=== PATIENT | female | born 1955 | race Caucasian/White ===

== ENCOUNTER 2019-10-01 18:08 | Inpatient (IN) | payer MEDICARE, SELFPAY ==
[2019-10-01] MEDS ORDERED: Adacel (T-DAP) 0.5 ML SYRINGE ONE (18:17)
--- NOTE | 2019-10-01 18:34 | CT ---
CT BRAIN WITHOUT CONTRAST: HISTORY: Level 2 trauma FINDINGS: No evidence of acute infarct, hemorrhage, midline shift or abnormal extra-axial fluid collections is seen. The ventricular size is appropriate and the basilar cisterns are patent. The bony calvarium is intact. The visualized paranasal sinuses and mastoid air cells are well aerated. IMPRESSION: No CT evidence of acute intracranial process. Report is called over the telephone to Dr. Rivero in the emergency room at 6:30 PM.
[2019-10-01 18:36] LABS: #Basophils 0.1 thou/uL (0.0-0.2); #Lymphocytes 1.4 thou/uL (1.20-3.40); #Monocytes 1.2 thou/uL (0.11-0.59); #Neutrophils 14.6 thou/uL (1.40-6.50); %Basophils 0.6 % (0.0-1.0); %Eosinophils 0.2 % (0.0-10.0); %Lymphocytes 7.8 % (21.0-51.0); %Monocytes 6.7 % (0.0-10.0); %Neutrophils 84.7 % (42.0-75.0); Hemoglobin 10.6 g/dL (12.0-16.0); Mean Corpuscular HGB CONC 33.8 g/dL (32.0-36.0); Mean Corpuscular Hemoglobin 32.5 pg (27.0-31.0); Mean Corpuscular Volume 96.3 fL (78.0-98.0); Mean Platelet Volume 7.8 fL (7.4-10.4); Platelet Count 284 thou/uL (130-400); RBC Distribution Width 12.3 % (11.5-14.5); Red Blood Cell (RBC) Count 3.25 mill/uL (4.20-5.40); White Blood Cell (WBC) Count 17.3 thou/uL (4.8-10.8)
--- NOTE | 2019-10-01 18:47 | RAD ---
XR Chest 1 View Portable HISTORY: Injury chest pain COMPARISON: None FINDINGS: The heart size is normal. There are changes of median sternotomy and valvular replacement s urgery. The aorta is tortuous. The lungs are well expanded without focal areas of consolidation, pneumothorax or pleural effusions. IMPRESSION: No radiographic evidence of acute cardiopulmonary process.
[2019-10-01 18:51] LABS: INR-International Normal Ratio 2.5; PTT 37.3 SEC (22.9-36.1); Prothrombin Time 26.4 SEC (12.0-14.7)
[2019-10-01] MEDS ORDERED: Ondansetron PF 4 MG/2 ML Vial ONE ×2 (18:52→21:10)
[2019-10-01] MEDS ORDERED: Ketamine 50 MG/ML (10ML VIAL) ONE ×2 (18:53→20:49)
[2019-10-01 18:57] LABS: ALT (SGPT) 34 U/L (8-55); AST (SGOT) 47 U/L (5-34); Alkaline Phosphatase 132 U/L (40-110); Anion Gap 15 mmol/L (10-20); BUN (Urea Nitrogen) 42 mg/dL (9.8-20.1); Bilirubin, Total 0.3 mg/dL (0.2-1.2); Calc. Creatinine Clearance 0 mL/min (70-130); Calcium 8.8 mg/dL (7.8-10.44); Carbon Dioxide 21 mmol/L (23-31); Chloride 105 mmol/L (98-107); Estimated GFR-MDRD 29; Globulin 3.2 g/dL (2.4-3.5); Glucose 73 mg/dL (80-115); Potassium 4.4 mmol/L (3.5-5.1); Protein, Total 7.2 g/dL (6.0-8.3); Sodium 137 mmol/L (136-145)
--- NOTE | 2019-10-01 19:08 | CT ---
CT CERVICAL SPINE WITH CORONAL AND SAGITTAL REFORMATIONS AND NO IV CONTRAST: HISTORY: Level 2 trauma, neck pain FINDINGS: Multilevel degenerative changes are present. There is loss of cervical lordosis with mild reversal. No fracture, subluxation or facet malalignment is identified. No prevertebral soft tissue swelling is apparent. There is scarring in the lung apices. IMPRESSION: No CT evidence for fracture or traumatic subluxation. Discussed over the telephone with ER physician Dr. Rivero at 1851 hours
[2019-10-01] MEDS ORDERED: Morphine 4 MG/ML VIAL ONE ×2 (19:16→19:58)
--- NOTE | 2019-10-01 19:21 | CT ---
CT FACIAL BONES WITHOUT CONTRAST: 10/01/19 HISTORY: Injury, level II trauma. FINDINGS/IMPRESSION: The bones of the facial skeleton are intact. No temporomandibular dislocation is identified. There is mucosal disease in the paranasal sinuses. No air fluid levels are noted. Discussed over the telephone with the ER physician, Dr. Rivero at 6:51 p.m. POS: OFF
[2019-10-01] MEDS ORDERED: Phytonadione 10 MG/ML AMP ONE (19:40)
--- NOTE | 2019-10-01 19:46 | RAD ---
LEFT ANKLE TWO VIEWS LEFT LEG TWO VIEWS: 10/01/19 HISTORY: Injury, left ankle pain. FINDINGS/IMPRESSION: There is a dislocation at the talonavicular joint and a displaced fracture involving the distal fibul a. POS: OFF
--- NOTE | 2019-10-01 19:59 | RAD ---
LEFT ANKLE TWO VIEWS: 10/01/19 HISTORY: Fracture dislocation. Post reduction. FINDINGS/IMPRESSION: Comparison is made with the earlier exam of 5:48 p.m. There is continued dislocation at the talonavicular joint with lateral dislocation of the talus in re lation to the distal tibia. There are displaced fractures involving the lateral and posterior malleo li. A cast has been placed. POS: OFF
[2019-10-01] MEDS ORDERED: CEFAZOLIN 2 GM in Premix Bag 1 BAG IVPB SCH (20:15)
[2019-10-01] MEDS ORDERED: cefTRIAXone\\ROCEPHIN 2 GM in Sodium Chloride 0.9% 100 ML IVPB SCH (20:15)
[2019-10-01] MEDS ORDERED: Phenylephrine HCL 10 MG/ML VIAL ONE (20:49)
[2019-10-01] MEDS ORDERED: Glycopyrrolate 0.2 MG/ML 5 ML SYRINGE ONE (21:10)
[2019-10-01] MEDS ORDERED: PROPOFOL 200 MG/20 ML VIAL ONE (21:10)
[2019-10-01] MEDS ORDERED: Rocuronium Bromide 10 MG/ML (10ML VIAL) ONE (21:10)
[2019-10-01] MEDS ORDERED: PHENYLEPHRINE-NS 100 MCG/ML 10 ML SYRINGE ONE (21:10)
--- NOTE | 2019-10-01 21:26 | HP ---
This is Chad Burger PA-C dictating a report for Rodrigo Macario MD. REQUESTING PHYSICIAN: Jovana Rivero DO ATTENDING SURGEON: Rodrigo Macario MD CONSULTATIONS: Orthopedics, Dr. Middleton. HISTORY OF PRESENT ILLNESS: The patient is a 64-year-old woman, who was working in her yard when she tripped over a root and fell. She denied loss of consciousness but had significant pain, discomfort and deformity to her left ankle. The patient incidentally has already undergone surgery for her right ankle and was wearing a walking boot at that time. The patient is on Coumadin. She was brought to the emergency department, where she underwent evaluation and examination and was noted to have left ankle fracture dislocation that was unable to be reduced in the emergency department. The patient would have vitamin K and 1 unit of FFP given to her and the plan is taken to the operating room tonight for open reduction and internal fixation. The patient was given multiple doses of fentanyl and ketamine, was only able to give us partial histories due to medications given to her at this time. ALLERGIES: NONE. CURRENT MEDICATIONS: Warfarin. PAST MEDICAL HISTORY: Heart valve replacement, hypertension. PAST SURGICAL HISTORY: Heart valve replacement, right ankle surgery. SOCIAL HISTORY: The patient smokes approximately 3 to 4 cigarettes per day. Denies drug or alcohol. She lives at home with her daughter. REVIEW OF SYSTEMS: A 10-point review of systems is negative as otherwise stated. PHYSICAL EXAMINATION: VITAL SIGNS: Blood pressure 182/76, heart rate 98, respirations 21, oxygen saturations 100% on 2 L via nasal cannula, temperature is 97.7. GENERAL: The patient is resting comfortably in bed. She will answer some questions, but definitely appears to be under the influence of narcotics at this time. She will follow commands. Her Chana Coma Scale is 14, -1 for some confusion. HEENT: Head is normocephalic, atraumatic. Eyes, extraocular motion intact. PERRLA bilaterally. Ears are atraumatic without discharge. Nose is atraumatic without discharge. Oropharynx is clear. NECK: Nontender. Trachea is midline. No JVD. CHEST: Clear to auscultation with good inspiratory and expiratory effort. HEART: Regular rate and rhythm. ABDOMEN: Soft, flat, nontender with active bowel sounds. EXTREMITIES: The patient has small contusions to bilateral upper extremities and small superficial lacerations to bilateral knees, right lower extremity is in a walking boot. The left lower extremity is currently in a posterior splint. She is neurovascularly intact in all 4 extremities. BACK: By report is atraumatic and nontender. LABORATORY FINDINGS: White blood cell count 17.3, hemoglobin 10.6, hematocrit 31.3, platelets 284. Sodium 137, potassium 4.4, chloride 105, CO2 of 21, BUN 42, creatinine 1.74, glucose 73. LFTs unremarkable with the exception of alkaline phosphatase of 132, AST of 47. Troponin is less than 0.010. PT 26, INR 2.5, PTT 37. RADIOGRAPHIC REPORT: CT of the brain without contrast shows no acute intracranial abnormality. CT of the facial bones without contrast shows no acute posttraumatic changes. CT of the C-spine without contrast shows no CT evidence for fracture or traumatic subluxation. AP chest x-ray shows no radiographic evidence of acute cardiopulmonary process. Views of the left tibia and fibula show dislocation at the talonavicular joint and displaced fracture involving the distal fibula. Views of the left ankle again shows dislocation of the talonavicular joint and displaced fracture involving the distal fibula. Post reduction films show no significant changes. ASSESSMENT: 1. Status post ground level fall, on warfarin. 2. Left ankle fracture dislocation. 3. Multiple contusions. 4. Superficial lacerations. 5. Acute pain secondary to above. 6. History of heart valve replacement and hypertension. PLAN: Plan will be to admit the patient to the surgical floor. She will go from the emergency room to the operating room. She has received 5 mg of vitamin K and 1 unit of fresh frozen plasma. We will repeat her INR postoperatively and again in the morning. Do pain control, pulmonary toilet, gastritis, mechanical VTE prophylaxis. The patient was evaluated in the emergency department by Dr. Middleton. The evaluation, examination, laboratory, and radiographic findings were discussed with Dr. Macario prior to this dictation. Job ID: [id number]
[2019-10-01] MEDS ORDERED: Fentanyl 100 MCG/2 ML VIAL ONE (22:59)
[2019-10-01] MEDS ORDERED: Promethazine HCl 25 MG/ML VIAL IM PRN (23:07)
[2019-10-01] MEDS ORDERED: Promethazine HCl 25 MG/ML VIAL SLOW IVP PRN (23:07)
[2019-10-01] MEDS ORDERED: Ondansetron HCl/PF 4 MG/2 ML Vial IVP PRN (23:07)
--- NOTE | 2019-10-01 23:29 | RAD ---
LEFT ANKLE TWO VIEWS: 10/01/19 HISTORY: Left ankle ORIF. FINDINGS/IMPRESSION: Interval reduction of the fracture dislocation has occurred since earlier exam of 6:55 p.m. There are two screws through the medial malleolus and plate and screws through the distal fibula. Anatomic ali gnment has been restored. POS: OFF
[2019-10-02] MEDS ORDERED: traMADol HCl 50 MG TAB PO PRN (01:22)
[2019-10-02] MEDS ORDERED: Ondansetron PF 4 MG/2 ML Vial IVP PRN (01:22)
[2019-10-02] MEDS ORDERED: hydrALAZINE 20 MG/ML VIAL SLOW IVP PRN (01:22)
[2019-10-02] MEDS ORDERED: Ondansetron ODT 4 MG TAB PO PRN (01:22)
[2019-10-02] MEDS ORDERED: Sodium Chloride 0.9% 1,000 ML IV SCH (01:22)
[2019-10-02] MEDS ORDERED: Morphine 2 MG/ML SYRINGE SLOW IVP PRN (01:22)
[2019-10-02] MEDS ORDERED: Dextrose 50% Abboject 50 ML SYRINGE SLOW IVP PRN (01:22)
[2019-10-02] MEDS ORDERED: Dextrose 5% in Water 1,000 ML IV PRN (01:22)
[2019-10-02] MEDS ORDERED: Cyclobenzaprine 10 MG TAB PO PRN (01:22)
[2019-10-02] MEDS ORDERED: Famotidine 20 MG TAB PO SCH ×2 (01:30→21:00)
[2019-10-02] MEDS: cefTRIAXone\\ROCEPHIN 1 GM in Sodium Chloride 0.9% 100 ML IVPB SCH ×2 (02:36→23:14)
[2019-10-02] MEDS: CEFAZOLIN 2 GM in Premix Bag 1 BAG IVPB SCH ×3 (02:37→17:33)
[2019-10-02 05:00] VITALS: BMI 24.7
[2019-10-02 05:49] LABS: #Basophils 0.1 thou/uL (0.0-0.2); #Lymphocytes 1.8 thou/uL (1.20-3.40); #Monocytes 1.1 thou/uL (0.11-0.59); #Neutrophils 7.7 thou/uL (1.40-6.50); %Basophils 1.1 % (0.0-1.0); %Eosinophils 0.4 % (0.0-10.0); %Lymphocytes 17.1 % (21.0-51.0); %Neutrophils 71.4 % (42.0-75.0); Hemoglobin 8.2 g/dL (12.0-16.0); Mean Corpuscular HGB CONC 32.1 g/dL (32.0-36.0); Mean Corpuscular Hemoglobin 31.2 pg (27.0-31.0); Mean Corpuscular Volume 97.4 fL (78.0-98.0); Mean Platelet Volume 7.7 fL (7.4-10.4); Platelet Count 245 thou/uL (130-400); RBC Distribution Width 12.4 % (11.5-14.5); Red Blood Cell (RBC) Count 2.63 mill/uL (4.20-5.40); White Blood Cell (WBC) Count 10.8 thou/uL (4.8-10.8)
--- NOTE | 2019-10-02 05:57 | CON ---
DATE OF CONSULTATION: 10/01/2019 CHIEF COMPLAINT: Left ankle pain. HISTORY OF PRESENT ILLNESS: Ms. Frausto is a 64-year-old female, who was outside her house today when she tripped on a root. She twisted her ankle and fell. She sustained an open laceration over the ankle and a dislocated ankle with underlying fracture. She was found to have this on x-ray upon arrival to the emergency department. The patient is on Coumadin. There was significant bleeding at the time of the accident. This has ceased. She has had an attempted reduction and a splint placed. She is currently resting comfortably. She has had morphine. She denies other injury including to her upper extremities. Of note, several weeks ago, she had an injury to the right ankle and sustained a nondisplaced fracture. She was treated in a boot for this. ALLERGIES: NO KNOWN DRUG ALLERGIES. FAMILY MEDICAL HISTORY: Noncontributory. REVIEW OF SYSTEMS: Positive for left ankle pain. Otherwise, negative 10-point review of systems. SOCIAL HISTORY: The patient smokes cigarettes daily. She denies alcohol or tobacco use. She lives with her daughter. PAST MEDICAL HISTORY: The patient has a history of mitral valve replacement, on Coumadin. She denies other active medical problems. PAST SURGICAL HISTORY: Previous mitral valve replacement surgery. PHYSICAL EXAMINATION: VITAL SIGNS: Stable. The patient is afebrile. She is normotensive, 98% on room air. GENERAL: She is alert, lying supine, no apparent distress. RESPIRATORY: Breathing comfortably. Pulses palpable peripherally and regular. ABDOMEN: Soft, nontender, and nondistended. MUSCULOSKELETAL: The patient's right lower extremity is in a boot. She has intact capillary refill of both feet. She has intact sensation to light touch. She is tender to palpation over the distal fibula on the right ankle. Left ankle is in a splint. She has deformity of the ankle. She has laceration over the medial aspect in a transverse fashion, which is extensive. IMAGING: X-rays demonstrate a distal fibular fracture with dislocation of the ankle laterally. There is soft tissue disruption. Other details are difficult to assess given that she has significant deformity. IMPRESSION: Left ankle fracture dislocation, open. PLAN: At this point, the patient will need to go to the operating room. She will go for irrigation and debridement of the ankle and open reduction and internal fixation. We will plan for this tonight. She will be given FFP and vitamin K to reverse her Coumadin. She will have antibiotics on-call to the operating room as well. She will stay in the hospital overnight for intravenous antibiotics, DVT prophylaxis, and pain control. She is aware of risks and benefits. She is aware of recovery process. Job ID: [id number]
[2019-10-02] MEDS ORDERED: CEFAZOLIN 2 GM in Premix Bag 1 BAG IVPB SCH (06:00)
[2019-10-02 06:09] LABS: INR-International Normal Ratio 1.3; PTT 31.8 SEC (22.9-36.1); Prothrombin Time 16.5 SEC (12.0-14.7)
[2019-10-02] MEDS: traMADol HCl 50 MG TAB PO SCH ×4 (06:19→23:16)
[2019-10-02] MEDS: Acetaminophen 325 MG TAB PO SCH ×2 (06:19→11:41)
[2019-10-02 06:25] LABS: Anion Gap 17 mmol/L (10-20); BUN (Urea Nitrogen) 36 mg/dL (9.8-20.1); Calc. Creatinine Clearance 30 mL/min (70-130); Carbon Dioxide 17 mmol/L (23-31); Chloride 106 mmol/L (98-107); Estimated GFR-MDRD 27; Glucose 247 mg/dL (80-115); Magnesium 1.8 mg/dL (1.6-2.6); Potassium 5.1 mmol/L (3.5-5.1); Sodium 135 mmol/L (136-145)
[2019-10-02 06:29] LABS: Phosphorus 3.4 mg/dL (2.3-4.7)
[2019-10-02] MEDS ORDERED: Furosemide 40 MG TAB PO SCH (09:00)
[2019-10-02] MEDS: hydrALAZINE 10 MG TAB PO SCH ×3 (09:00→20:23)
[2019-10-02] MEDS: Gabapentin 300 MG CAP PO SCH ×2 (09:00→20:23)
[2019-10-02] MEDS ORDERED: Enoxaparin Sodium 30 MG/0.3 ML SYRINGE SC SCH ×2 (09:00→18:00)
[2019-10-02] MEDS: Metoprolol Tartrate 25 MG TAB PO SCH ×2 (09:01→20:24)
[2019-10-02] MEDS: Senokot S 8.6-50 MG TAB PO SCH ×2 (09:03→20:23)
[2019-10-02] MEDS: Polyethylene Glycol 3350 17 GM Packet PO SCH (09:03)
--- NOTE | 2019-10-02 09:38 | OP ---
DATE OF PROCEDURE: 10/01/2019 OPERATIONS: 1. Open reduction and internal fixation of left bimalleolar ankle fracture. 2. Irrigation and debridement of left open bimalleolar ankle fracture. PREOPERATIVE DIAGNOSIS: Open left bimalleolar ankle fracture. POSTOPERATIVE DIAGNOSIS: Open left bimalleolar ankle fracture. COMPLICATIONS: None. ESTIMATED BLOOD LOSS: 100 cc. IMPLANTS: Synthes one third tubular plate, 7-hole with two 4.0 partially-threaded screws. INDICATIONS: Ms. Frausto is a 64-year-old female who fell at home. She tripped and landed out in her garden. She had an open left ankle fracture. She has been indicated for open reduction and internal fixation as well as irrigation and debridement of her fracture to restore anatomic alignment and hopefully prevent wound complications or infection. Risks have been reviewed in detail. She has elected to proceed with the operation. DESCRIPTION OF OPERATION: Ms. Frausto was identified in the preoperative holding area. Her correct extremity was marked. She was carried to the operating room. She was positioned supine. General anesthesia was induced. A multidisciplinary time-out was performed. The left lower extremity was prepped and draped in sterile fashion. We began the procedure by irrigating the patient's wound. We performed a debridement of the open fracture. We excised the skin edges as well as subcutaneous tissues. We encountered some contamination including hair and some leaf-like material. This was removed carefully. We removed any contaminated-appearing tissue or substance. We thoroughly irrigated the joint with 5 L of lavage as well as the bony ends. Once we had a thorough debridement, we proceeded to reduce the medial malleolus. We pulled traction and reduced the dislocated ankle as well. We restored the anatomic alignment of the medial malleolus. This was held with a K-wire and a reduction clamp was placed. Next, we placed two 4.0 mm partially-threaded screws across the medial malleolar fracture. This reconstituted the stability of the medial side. We then made an incision along the lateral aspect of the ankle over the fibula. We dissected down through the subcutaneous tissues and obtained hemostasis. We then cleared the bony edges. We encountered a highly comminuted fracture of the fibula. We pieced this back together with reduction clamp and K-wires. Once we had an anatomic reduction, we checked intraoperative x-ray. We were happy with our reduction on the x-ray as well. We then placed a 7-hole one third tubular plate. Multiple screws were placed proximally and distally. This repaired the lateral malleolus. Again, we took x-ray images including a stress view, which was negative. We then closed the wounds in layers. A sterile dressing was applied as well as a splint. The patient was taken to the recovery room at this point in good condition without complication. Job ID: [id number]
--- NOTE | 2019-10-02 10:07 | PRG ---
DATE OF SERVICE: 10/02/2019 SUBJECTIVE: The patient is doing well. She does have pain in her left ankle. She has been resting comfortably. No events overnight. She was finished with surgery approximately 11 o'clock last night. No chest pain or shortness of breath. OBJECTIVE: VITAL SIGNS: Temperature is 98.2, pulse is 117, respiratory rate is 16, oxygen saturation 90%, and blood pressure is 161/64. GENERAL: She is alert and oriented, no apparent distress. RESPIRATORY: Breathing comfortably. ABDOMEN: Soft, nontender, and nondistended. MUSCULOSKELETAL: The patient's left lower extremity has a splint, which is clean and dry. It is well padded. She is elevating the foot. She has intact capillary refill and is able to wiggle the toes. IMPRESSION: Status post open left ankle fracture, bimalleolar. PLAN: At this point, the patient will need to mobilize with physical therapy. She is nonweightbearing on the left leg. She can weightbear as tolerated on her right leg. She needs to continue elevation. I would like to keep her in the hospital today for 48 hours of antibiotics given that she had a contaminated open wound. Job ID: [id number]
[2019-10-02] MEDS ORDERED: Acetaminophen 325 MG TAB PO SCH (12:00)
[2019-10-02] MEDS ORDERED: Ibuprofen 600 MG TAB PO PRN (12:12)
[2019-10-02] MEDS ORDERED: PROVENTIL INHALER 6.7 G (200 INHALATIONS) INH PRN (13:00)
--- NOTE | 2019-10-02 15:16 | RAD ---
LEFT ANKLE TWO VIEWS: 10/02/19 HISTORY: Postop. There has been open reduction internal fixation of the ankle fracture. Fibular fracture is stabilized with plate and screws and two screws stabilize the medial malleolar fracture. IMPRESSION: Postoperative changes of the ankle. POS: TPC
[2019-10-02] MEDS ORDERED: Warfarin Sodium 5 MG TAB PO SCH ×3 (17:00)
[2019-10-02] MEDS: HumaLOG 300 UNITS/3 ML VIAL SC SCH ×2 (17:36→20:47)
[2019-10-02] MEDS: Acetaminophen 500 MG TAB PO SCH ×2 (17:47→23:16)
[2019-10-02] MEDS ORDERED: Sodium Chloride 0.9% 500 ML IV SCH (18:45)
[2019-10-02] MEDS: Heparin 5,000 UNITS/ML VIAL SC SCH (20:24)
[2019-10-02] MEDS ORDERED: FLU VACC TS2019-20(65YR UP)/PF 180 MCG/0.5 ML SYRINGE IM ONE (21:00)
[2019-10-02] MEDS ORDERED: HumuLIN 70/30 (300 UNITS/3 ML VIAL) SC SCH (21:00)
[2019-10-02] MEDS ORDERED: Prevnar 13-Val Conj/PF 0.5 ML SYRINGE IM ONE (21:00)
--- NOTE | 2019-10-03 01:10 | PRG ---
DATE OF SERVICE: 10/03/2019 SUBJECTIVE: The patient is currently on the surgical floor. She is hospital day #2, postop day #1 from a ground level fall which sustained a left ankle fracture dislocation. She has undergone open reduction and internal fixation of same. She tolerated the procedure well. She reportedly has her pain control, tolerating a diet, begin working with therapy today. She is also awaiting placement. The patient's updated home medication list was restarted also. The patient was on Coumadin preoperatively. She was given vitamin K and fresh frozen plasma for her surgery, and she is currently on heparin and resume her Coumadin. PHYSICAL EXAMINATION: VITAL SIGNS: Stable. The patient is afebrile. GENERAL: The patient is resting comfortably in bed. She appears in no distress. She is sleeping. I did not awaken her for an exam. The nurses report no issues tonight. ASSESSMENT: 1. Status post ground level fall, on Coumadin. 2. Status post open reduction and internal fixation of left ankle fracture dislocation. 3. Multiple contusions. 4. Superficial lacerations, stable. 5. History of heart valve replacement and hypertension. PLAN: Plan will be to continue supportive care. Encourage physical and occupational therapy. Repeat labs in the morning to include INR. We will continue working with Case Management for a placement. Job ID: [id number]
[2019-10-03] MEDS: CEFAZOLIN 2 GM in Premix Bag 1 BAG IVPB SCH ×2 (02:35→09:30)
[2019-10-03 05:26] LABS: INR-International Normal Ratio 1.1; PTT 40.5 SEC (22.9-36.1); Prothrombin Time 14.6 SEC (12.0-14.7)
[2019-10-03 06:15] LABS: Anion Gap 15 mmol/L (10-20); BUN (Urea Nitrogen) 31 mg/dL (9.8-20.1); Calc. Creatinine Clearance 31 mL/min (70-130); Calcium 8.8 mg/dL (7.8-10.44); Carbon Dioxide 21 mmol/L (23-31); Chloride 104 mmol/L (98-107); Estimated GFR-MDRD 28; Glucose 196 mg/dL (80-115); Magnesium 1.9 mg/dL (1.6-2.6); Phosphorus 2.7 mg/dL (2.3-4.7); Potassium 4.8 mmol/L (3.5-5.1); Sodium 135 mmol/L (136-145)
[2019-10-03] MEDS: Acetaminophen 500 MG TAB PO SCH ×2 (06:19→12:13)
[2019-10-03] MEDS: HumaLOG 300 UNITS/3 ML VIAL SC SCH ×2 (06:20→12:20)
[2019-10-03] MEDS ORDERED: Gabapentin 100 MG CAP PO PRN (07:50)
[2019-10-03] MEDS ORDERED: Enoxaparin Sodium 30 MG/0.3 ML SYRINGE SC SCH (09:00)
[2019-10-03] MEDS: Polyethylene Glycol 3350 17 GM Packet PO SCH (09:26)
[2019-10-03] MEDS: Metoprolol Tartrate 25 MG TAB PO SCH (09:27)
[2019-10-03] MEDS: hydrALAZINE 10 MG TAB PO SCH (09:28)
[2019-10-03] MEDS: Senokot S 8.6-50 MG TAB PO SCH (09:28)
[2019-10-03] MEDS: Heparin 5,000 UNITS/ML VIAL SC SCH (09:29)
[2019-10-03] MEDS ORDERED: traMADol HCl 50 MG TAB PO SCH (10:00)
[2019-10-03 11:15] VITALS: BP 153/72; TEMP 98.1
--- NOTE | 2019-10-06 13:45 | DIS ---
DATE OF ADMISSION: 10/02/2019 DATE OF DISCHARGE: 10/03/2019 ADMISSION DIAGNOSES: 1. Status post ground level fall . 2. Left ankle fracture. 3. History of right ankle fracture, knee replacement, hypertension, diabetes. DISCHARGE DIAGNOSES: 1. Status post ground level fall. 2. Left ankle fracture status post ORIF of left ankle fracture. 3. History of recent right ankle fracture; heart valve replacement, on Coumadin; hypertension, diabetes. Chronic kidney disease, stable. CONSULTING PHYSICIAN: Dr. Middleton. PROCEDURES: ORIF of the left ankle fracture. HOSPITAL COURSE: Ms. Frausto is a 64-year-old female who is status post ground level fall. She sustained left ankle fracture. She underwent ORIF of right ankle fracture due to contaminated wound of right ankle fracture. Dr. Middleton wants the patient to be in antibiotic for 40 hours. The patient also has a history of diabetes and chronic kidney disease, in which she has been stable and blood glucose is controlled. The patient has been working with Physical Therapy and Occupational Therapy. Yesterday, the patient accidentally had weightbearing from the left feet in which she had the left ankle x-ray ordered. The results were normal. The patient has been accepted to rehabilitation facility today. PHYSICAL EXAMINATION: GENERAL: Currently, the patient is lying down in bed comfortable with no acute respiratory distress. GCS 15. VITAL SIGNS: Temperature 98.1, heart rate 96, respiratory rate 18, O2 saturation 96% on room air, blood pressure 153/72. LUNGS: Clear bilaterally. HEART: Regular rate and rhythm. ABDOMEN: Soft, nondistended. EXTREMITIES: Left ankle postop dressing clean, dry, intact. NEUROLOGICAL: No focal neurology deficits. DISCHARGE DISPOSITION: Rehabilitation facility. DISCHARGE CONDITION: Fair. DISCHARGE INSTRUCTION: The patient is to take medication as directed. The patient is to use heparin for DVT prophylaxis. The patient is to continue working with Physical Therapy and Occupational Therapy. The patient is to have blood glucose control using insulin. The patient will need to have tramadol dose to reduce due to excessive drowsiness. DISCHARGE MEDICATIONS: 1. Tylenol. 2. Albuterol. 3. Cefazolin. 4. . 5. Flexeril. 6. Tramadol. 7. Metoprolol. 8. Insulin. Job ID: [id number] [facility]
== END 2019-10-03 13:20 | DRG 494 ==
LOC: ERS 18:08 → SDC/OP 20:48 → SURG A 10-02 01:16
PROVIDERS: ADMIT Surgery; ATTEND Surgery
PROC: 0QSH04Z Reposition Left Tibia with Internal Fixation Device, Open Approach (ICD-10-PCS; principal; 2019-10-02)
PROC: 0QSK04Z Reposition Left Fibula with Internal Fixation Device, Open Approach (ICD-10-PCS; 2019-10-02)
DX: S82.852B Displaced trimalleolar fracture of left lower leg, initial encounter for open fracture type I or II (principal); I10 Essential (primary) hypertension; F17.210 Nicotine dependence, cigarettes, uncomplicated; W01.0XXA Fall on same level from slipping, tripping and stumbling without subsequent striking against object, initial encounter; S05.10XA Contusion of eyeball and orbital tissues, unspecified eye, initial encounter; Z79.01 Long term (current) use of anticoagulants; Z95.2 Presence of prosthetic heart valve; Y93.89 Activity, other specified; Y92.096 Garden or yard of other non-institutional residence as the place of occurrence of the external cause
CPT/HCPCS: 27818; 36415; 36416; 36430; 70450; 70486; 71045; 72125; 76000; 80048; 80053; 83735; 84100; 84484; 85025; 85610; 85730; 86850; 86900; 86901; 90471; 90715; 93005; 94640; 96360; 96365; 96375; 96376; C1713; G0390; J0360; J0690; J0696; J1644; J1650; J1815; J2270; J2370; J2405; J2704; J3010; J3430; J3490; J7620; P9059

== ENCOUNTER 2019-11-15 12:57 | Inpatient (IN) | payer MEDICARE ==
--- NOTE | 2019-11-15 13:38 | RAD ---
Left lower leg 2 views HISTORY: Left leg pain. FINDINGS: 2 long lag screws transfix a nondisplaced fracture at the base of the medial malleolus. Long compression side plate and multiple screws transfix the distal fibular fracture. The third most proximal screw is backed out of the compression plate by 0.6 cm, approaching the skin surface. No nikolay-hardware lucency is evident. No acute fracture or dislocation. Prominent calcification over the arterial structures. IMPRESSION : Malposition of one of the cortical fixation screws associated with the distal tibial or lateral compr ession plate. Atherosclerosis.
--- NOTE | 2019-11-15 13:39 | RAD ---
Left ankle 3 views HISTORY: Ankle pain and injury. Recent surgery. FINDINGS: Ankle mortise and talar dome are intact. 2 long lag screws transfix a nondisplaced oblique fracture at the base of the medial malleolus. Long compression side plate transfixes the distal fibula. Alignment is anatomic. The third most proxi mal screw is backed out of the compression plate by 6 mm. No nikolay-hardware lucency. IMPRESSION : Internal fixation left ankle. Malposition of one of the distal fibular fixation screws.
[2019-11-15] MEDS ORDERED: Ondansetron PF 4 MG/2 ML Vial IV PRN (14:41)
[2019-11-15] MEDS ORDERED: traMADol HCl 50 MG TAB PO PRN ×2 (14:41)
[2019-11-15] MEDS ORDERED: Morphine 2 MG/ML SYRINGE SLOW IVP PRN (14:41)
[2019-11-15] MEDS ORDERED: Communication Order-Pharmacy FS SCH (14:45)
[2019-11-15 15:14] LABS: #Basophils 0.2 thou/uL (0.0-0.2); #Eosinphils 1.3 thou/uL (0.0-0.7); #Lymphocytes 2.1 thou/uL (1.20-3.40); #Monocytes 0.7 thou/uL (0.11-0.59); %Basophils 1.9 % (0.0-1.0); %Eosinophils 12.7 % (0.0-10.0); %Lymphocytes 20.1 % (21.0-51.0); %Neutrophils 58.4 % (42.0-75.0); Hemoglobin 9.7 g/dL (12.0-16.0); Mean Corpuscular HGB CONC 32.9 g/dL (32.0-36.0); Mean Corpuscular Hemoglobin 31.4 pg (27.0-31.0); Mean Corpuscular Volume 95.4 fL (78.0-98.0); Mean Platelet Volume 7.3 fL (7.4-10.4); Platelet Count 332 thou/uL (130-400); RBC Distribution Width 12.9 % (11.5-14.5); Red Blood Cell (RBC) Count 3.08 mill/uL (4.20-5.40); White Blood Cell (WBC) Count 10.2 thou/uL (4.8-10.8)
[2019-11-15 15:19] LABS: INR-International Normal Ratio 1.7; PTT 41.5 SEC (22.9-36.1); Prothrombin Time 19.6 SEC (12.0-14.7)
[2019-11-15 15:33] LABS: ALT (SGPT) 17 U/L (8-55); AST (SGOT) 21 U/L (5-34); Albumin 3.6 g/dL (3.4-4.8); Alkaline Phosphatase 122 U/L (40-110); Anion Gap 15 mmol/L (10-20); BUN (Urea Nitrogen) 44 mg/dL (9.8-20.1); Bilirubin, Total 0.4 mg/dL (0.2-1.2); Calc. Creatinine Clearance 0 mL/min (70-130); Carbon Dioxide 20 mmol/L (23-31); Chloride 107 mmol/L (98-107); Estimated GFR-MDRD 25; Globulin 3.6 g/dL (2.4-3.5); Glucose 103 mg/dL (80-115); Potassium 4.6 mmol/L (3.5-5.1); Protein, Total 7.2 g/dL (6.0-8.3); Sodium 137 mmol/L (136-145)
[2019-11-15 17:37] VITALS: BMI 23.3
[2019-11-15] MEDS ORDERED: Prevnar 13-Val Conj/PF 0.5 ML SYRINGE IM ONE (18:30)
--- NOTE | 2019-11-15 18:47 | HP ---
BRIEF HISTORY OF PRESENT ILLNESS: Ms. Frausto is a 64-year-old lady, well known to the [facility]. On October 01, 2019, she sustained a ground level fall when she tripped over a root while working in her yard. She sustained a fracture dislocation of the left ankle. The patient does take Coumadin for mitral valve replacement and as such, surgery was delayed one day so that she could receive vitamin K and 1 unit of fresh frozen plasma. She was taken to the operating room on the evening of October 01 and underwent an open reduction and internal fixation procedure. The patient was subsequently discharged to rehabilitation and subsequently discharged to home. Compliance has been an issue with the patient bearing some weight on this ankle. In the postoperative period, she did develop a mild partial-thickness skin loss especially noticeable at the lateral aspect of the ankle. This has been addressed with damp to dry dressing changes and some wound care evaluations through home health. Today, upon home health evaluation, she was found to have a visible screw head in the lateral wound and as such, I was contacted by phone and the patient now being admitted for hardware removal and irrigation and debridement of this lateral wound. The patient is otherwise well and denies any recent fevers, chills, or coughs. Of note, the patient does take Coumadin and we are awaiting an INR level. PAST MEDICAL HISTORY: Remarkable for history of hypertension as well as a heart valve replacement. PAST SURGICAL HISTORY: Heart valve replaced as well as right ankle surgery and now more recently left ankle open reduction and internal fixation on October 01, 2019. MEDICATIONS: Warfarin. ALLERGIES: NONE KNOWN. SOCIAL HISTORY: She smokes a few cigarettes each day and has done so for many years. She denies drug or alcohol abuse. She lives with her daughter at home. FAMILY HISTORY: Noncontributory. REVIEW OF SYSTEMS: Does not report any recent fevers, chills, or sweats. Denies chest pain, cough, or shortness of breath. Denies numbness or tingling in this left lower extremity. PHYSICAL EXAMINATION: GENERAL: The patient is examined in her emergency room. She does not appear to be in any acute distress. VITAL SIGNS: She is found to have a temperature of 98.4 degrees orally with a heart rate of 63, respiratory rate of 18, and blood pressure 176/77. HEENT: Atraumatic and normocephalic. HEART: Shows a regular rate and rhythm without murmur. CHEST: Clear to auscultation bilaterally with good breath sounds. Chest wall is nontender. ABDOMEN: Soft, flat with normal bowel sounds. EXTREMITIES: Remarkable for her left lower extremity with patchy areas of wound dehiscence along the incision line laterally with a screw head visible through one of these partial skin loss areas. There is some screw that is visible that is in the upper half of the plate. There is no surrounding erythema. There is no visible drainage. The medial side of the ankle also has an area of some fibrinous exudate, but no visible hardware or bone is present. There is also no erythema medially. LABORATORY DATA: CBC, complete metabolic panel, and INR pending. X-rays today in the emergency room. X-rayswere obtained that consist of a 3-view ankle and 2-view tib-fib that shows a screw that has backed out of the fibular plate with the fracture otherwise held in anatomic alignment. There is still not significant bridging callus laterally. ASSESSMENT: A 64-year-old lady, status post open reduction and internal fixation of left ankle, now with wound dehiscence and visible hardware. PLAN: At this time, the patient will be admitted to the [facility]opedic [facility] Service. We will await her INR values to determine appropriate dosing of vitamin K if indicated. We will schedule the patient for hardware removal with irrigation and debridement of this lateral ankle wound tomorrow morning as well as some debridement of the small fibrinous exudate medially. I have discussed with the patient risks and benefits of this procedure. Risks include, but are not limited to bleeding, infection, nerve injury, need for additional surgery, loss of fixation of her fracture, need for additional stabilization of her fracture, loss of limb or life. She appears to understand and does wish to proceed. We will try and make sure that her daughter has also been informed regarding our plans prior to surgery. Job ID: [id number]
[2019-11-15] MEDS ORDERED: Dextrose 50% Abboject 50 ML SYRINGE SLOW IVP PRN (19:38)
[2019-11-15] MEDS ORDERED: Dextrose 5% in Water 1,000 ML IV PRN (19:38)
[2019-11-15] MEDS ORDERED: Bisacodyl 10 MG SUPP PR PRN (19:40)
[2019-11-15] MEDS ORDERED: Bisacodyl 5 MG TAB PO PRN (19:40)
[2019-11-15] MEDS ORDERED: Acetaminophen 325 MG TAB PO PRN (19:40)
--- NOTE | 2019-11-15 19:52 | PDOC.HOSPP ---
- Subjective Encounter Date: 11/15/19 Encounter Time: 19:30 Subjective: Patient seen and examined. No new complaints. Denies fever, chills, N/V. Consulted for medical management. Scheduled for left ankle hardware removal and debridement tomorrow with Dr. Montalvo. - Objective Vital Signs & Weight: Vital Signs (12 hours) Temp Pulse Resp BP Pulse Ox 11/15/19 17:15 97.4 F L 65 16 128/74 96 Weight Weight 132 lb I&O: 11/14/19 11/15/19 11/16/19 06:59 06:59 06:59 Intake Total 300 Balance 300 Result Diagrams: 11/15/19 15:01 11/15/19 15:01 Radiology Reviewed by me: Yes (CXR reviewed) Hospitalist ROS - Review of Systems Constitutional: denies: fever, chills, sweats, weakness, malaise, other Respiratory: denies: cough, dry, shortness of breath, hemoptysis, SOB with excertion, pleuritic pain, sputum, wheezing, other Cardiovascular: denies: chest pain, palpitations, orthopnea, paroxysmal noc. dyspnea, edema, light headedness, other Gastrointestinal: denies: nausea, vomiting, abdominal pain, diarrhea, constipation, melena, hematochezia, other Genitourinary: denies: dysuria, frequency, incontinence, hematuria, retention, other - Exam General Appearance: NAD, awake alert Eye: anicteric sclera ENT: normocephalic atraumatic Neck: supple, no JVD Heart: RRR, no gallops, no rubs, normal peripheral pulses, II/IV Respiratory: CTAB, no wheezes, no rales, no ronchi, no tachypnea Gastrointestinal: soft, non-tender, non-distended, normal bowel sounds, no guarding, no rigidity Extremities: no cyanosis, no edema Extremities - other findings: Left ankle wrapped SUKHI and Gauze Neurological: no focal deficits Psychiatric: normal affect, A&O x 3 Hosp A/P (1) HTN (hypertension) Code(s): I10 - ESSENTIAL (PRIMARY) HYPERTENSION Status: Chronic Plan: Stable, controlled Patient did take her morning medications today Will restart Metoprolol and hydralazine Will hold Lasix (2) DMII (diabetes mellitus, type 2) Status: Chronic Plan: Patient takes 70/30, 20u BID BS stable, will hold and add sliding scale AC/HS accuchecks NPO after midnight (3) H/O mitral valve repair Code(s): Z98.890 - OTHER SPECIFIED POSTPROCEDURAL STATES Status: Chronic Plan: Patient taking coumadin Hold coumadin INR 1.7 (4) CKD (chronic kidney disease), stage IV Code(s): N18.4 - CHRONIC KIDNEY DISEASE, STAGE 4 (SEVERE) Status: Chronic Plan: stable, 10/09/2019 Creatinine/GFR 1.76/29 Will hold lasix Gentle IVF hydration after midnight (5) Asthma Code(s): J45.909 - UNSPECIFIED ASTHMA, UNCOMPLICATED Status: Chronic Plan: Well controlled, intermittent asthma Has albuterol inhaler prn home med - Plan Order baseline EKG and CXR BMP, CBC in am Consult PT/OT GI prophlaxis SCDs DVT prophylaxis Full Code DPOA Crystal (daughter) at [phone]
--- NOTE | 2019-11-15 20:27 | RAD ---
PORTABLE CHEST: 11/15/19 COMPARISON: 10/01/19 study. HISTORY: Preop. Heart size appears slightly enlarged with postop sternotomy changes. Some minimal blunting to the rig ht costophrenic angle is noted. Some atelectasis in the right base. IMPRESSION: 1. Mild cardiomegaly. 2. Chronic lung changes. Some blunting to the right costophrenic angle which could indicate a sm all effusion. POS: TIMOTHY
[2019-11-15] MEDS: hydrALAZINE 10 MG TAB PO SCH (21:06)
[2019-11-15] MEDS: Metoprolol Tartrate 25 MG TAB PO SCH (21:07)
[2019-11-15] MEDS: Famotidine 20 MG TAB PO SCH (21:07)
[2019-11-15] MEDS: HumaLOG 300 UNITS/3 ML VIAL SC PRN (21:08)
[2019-11-15] MEDS: Sodium Chloride 0.9% 1,000 ML IV SCH (23:58)
[2019-11-16 05:04] LABS: #Basophils 0.2 thou/uL (0.0-0.2); #Eosinphils 1.8 thou/uL (0.0-0.7); #Lymphocytes 2.2 thou/uL (1.20-3.40); #Monocytes 0.9 thou/uL (0.11-0.59); #Neutrophils 6.5 thou/uL (1.40-6.50); %Basophils 2.1 % (0.0-1.0); %Eosinophils 15.6 % (0.0-10.0); %Lymphocytes 18.9 % (21.0-51.0); %Monocytes 7.7 % (0.0-10.0); %Neutrophils 55.6 % (42.0-75.0); Hemoglobin 8.6 g/dL (12.0-16.0); Mean Corpuscular HGB CONC 32.6 g/dL (32.0-36.0); Mean Corpuscular Hemoglobin 31.1 pg (27.0-31.0); Mean Corpuscular Volume 95.2 fL (78.0-98.0); Mean Platelet Volume 7.3 fL (7.4-10.4); Platelet Count 270 thou/uL (130-400); Red Blood Cell (RBC) Count 2.76 mill/uL (4.20-5.40); White Blood Cell (WBC) Count 11.7 thou/uL (4.8-10.8)
[2019-11-16 05:21] LABS: INR-International Normal Ratio 1.7; Prothrombin Time 19.5 SEC (12.0-14.7)
[2019-11-16 05:22] LABS: Anion Gap 11 mmol/L (10-20); BUN (Urea Nitrogen) 43 mg/dL (9.8-20.1); CRP (Inflammatory) 1.36 mg/dL (= or < 0.5); Calc. Creatinine Clearance 30 mL/min (70-130); Calcium 8.3 mg/dL (7.8-10.44); Carbon Dioxide 24 mmol/L (23-31); Chloride 107 mmol/L (98-107); Estimated GFR-MDRD 29; Glucose 104 mg/dL (80-115); Potassium 4.4 mmol/L (3.5-5.1); Sodium 138 mmol/L (136-145)
[2019-11-16] MEDS ORDERED: Lidocaine 2% Jelly 5 ML TUBE ONE (07:04)
[2019-11-16] MEDS ORDERED: Midazolam HCl 2 mg/2 ml Vial ONE (07:04)
[2019-11-16] MEDS ORDERED: Fentanyl 100 MCG/2 ML VIAL ONE (07:04)
[2019-11-16] MEDS: hydrALAZINE 10 MG TAB PO SCH ×3 (07:28→23:51)
[2019-11-16] MEDS ORDERED: Albuterol Sulfate 1.25 MG/3 ML NEB ONE (07:50)
[2019-11-16] MEDS: Metoprolol Tartrate 25 MG TAB PO SCH ×2 (09:00→21:14)
--- NOTE | 2019-11-16 09:13 | RAD ---
Left ankle intraoperative fluoroscopy one view HISTORY: Hardware removal. FINDINGS: Intraoperative fluoroscopy was provided for orthopedic surgery as performed by Dr. Montalvo . Spot fluoroscopic image shows absence of the distal fibular lateral compression sideplate and screws. Internal fixation of the medial malleolus persists.
[2019-11-16] MEDS ORDERED: Glycopyrrolate 0.2 MG/ML 5 ML SYRINGE ONE (09:47)
[2019-11-16] MEDS ORDERED: Rocuronium Bromide 10 MG/ML (10ML VIAL) ONE (09:47)
[2019-11-16] MEDS ORDERED: Dexamethasone 20 MG/5 ML VIAL ONE (09:47)
[2019-11-16] MEDS ORDERED: EPHEDRINE 25 MG/5 ML SYRINGE ONE (09:47)
[2019-11-16] MEDS ORDERED: Lidocaine 1% PF 5 ML VIAL ONE (09:47)
[2019-11-16] MEDS ORDERED: PHENYLEPHRINE-NS 100 MCG/ML 10 ML SYRINGE ONE (09:47)
[2019-11-16] MEDS ORDERED: Ondansetron PF 4 MG/2 ML Vial ONE (09:47)
[2019-11-16] MEDS ORDERED: PROPOFOL 200 MG/20 ML VIAL ONE (09:47)
--- NOTE | 2019-11-16 10:03 | OP ---
DATE OF PROCEDURE: 11/16/2019 PREOPERATIVE DIAGNOSIS: Left lateral ankle wound dehiscence with exposed hardware, status post open reduction and internal fixation of lateral malleolus. POSTOPERATIVE DIAGNOSIS: Left lateral ankle wound dehiscence with exposed hardware, status post open reduction and internal fixation of lateral malleolus. PROCEDURES PERFORMED: 1. Removal of left lateral malleolar plate and screws. 2. Irrigation and debridement of skin, subcutaneous tissue, and bone, left lateral malleolus. ANESTHESIA: General. POWERBUILDER: Pro. TOURNIQUET TIME: 18 minutes at 300 mmHg. SPECIMEN: Explanted plate and screws discarded. COMPLICATIONS: None. DRAINS: None. OUTCOME: Satisfactory. INDICATIONS FOR PROCEDURE: The patient is a 64-year-old lady, who is status post open reduction and internal fixation for a left bimalleolar ankle fracture. The patient has been somewhat noncompliant with her postoperative care with bearing weight on the ankle. She did go on to develop some small areas of wound dehiscence; however, over the last 48 hours, has now had a screw that is visible and backed out of the fibular plate. Given this change in wound condition, the patient is now admitted and scheduled for removal of hardware and irrigation and debridement of this lateral ankle wound. We are also planning on unroofing a small area of wound dehiscence on the medial side of the ankle as well. DESCRIPTION OF PROCEDURE: The patient was brought to the operating room and a time-out was performed followed by induction of general anesthesia. Next, a sterile prep and drape was performed of the left lower extremity. Next, the tourniquet was inflated and then an incision was made following the scar from her hardware placement at the lateral side of the ankle. After skin was sharply incised, dissection was carried down bluntly exposing the plate and screws. The plate and screws were removed without difficulty, and then a single AP radiograph was obtained to document successful hardware removal. Next, a swab of the wound was taken and sent for Gram stain, culture, and sensitivity, and then a bulb syringe was used to thoroughly irrigate the lateral wound as well as the medial wound that had been unroofed. Following this, tourniquet was let down with a total time of 18 minutes and then hemostasis was obtained. Once the wound beds were relatively dry, a gauze dressing was applied with plans to have her start wound care and wound VAC therapy tomorrow once her INR has dropped a bit more. Following a gauze dressing, a fiberglass splint was applied to the ankle and then the patient was transferred to recovery room in stable condition. There were no complications. She tolerated the procedure well. Job ID: [id number]
[2019-11-16] MEDS ORDERED: Albuterol Sulfate 2.5 mg/3 ml Neb NEB SCH (11:00)
[2019-11-16] MEDS: HumaLOG 300 UNITS/3 ML VIAL SC PRN ×3 (13:15→21:12)
[2019-11-16] MEDS: CEFAZOLIN 2 GM in Premix Bag 1 BAG IVPB SCH ×2 (14:50→21:13)
[2019-11-16] MEDS: Sodium Chloride 0.9% 1,000 ML IV SCH (15:08)
--- NOTE | 2019-11-16 19:39 | PDOC.HOSPP ---
- Subjective Encounter Date: 11/16/19 Encounter Time: 14:00 Subjective: Patient seen and examined for med mngt. No CP/SOB. No new complaints. No overnight events - Objective Vital Signs & Weight: Vital Signs (12 hours) Temp Pulse Resp BP BP Pulse Ox 11/16/19 16:20 129/61 11/16/19 15:53 97.9 F 66 14 132/48 L 94 L 11/16/19 15:07 75 167/82 H 11/16/19 10:00 97.9 F 75 20 164/61 H 96 Weight Weight 132 lb I&O: 11/15/19 11/16/19 11/17/19 06:59 06:59 06:59 Intake Total 300 1374 Balance 300 1374 Result Diagrams: 11/16/19 04:47 11/16/19 04:47 Additional Labs: Accuchecks 11/16/19 11/16/19 11/16/19 15:58 12:11 05:46 POC Glucose 354 H 242 H 129 H 11/15/19 20:49 POC Glucose 370 H Hospitalist ROS - Review of Systems Respiratory: denies: cough, dry, shortness of breath, hemoptysis, SOB with excertion, pleuritic pain, sputum, wheezing, other Cardiovascular: denies: chest pain, palpitations, orthopnea, paroxysmal noc. dyspnea, edema, light headedness, other - Medication Medications: Active Medications Generic Name Dose Route Start Last Admin Trade Name Freq PRN Reason Stop Dose Admin Famotidine 20 mg 11/15/19 21:00 11/15/19 21:07 Pepcid PO 20 mg QPM SANDY Administration Hydralazine HCl 20 mg 11/15/19 21:00 11/16/19 15:07 Apresoline PO 20 mg TID SANDY Administration Sodium Chloride 1,000 mls @ 75 mls/hr 11/15/19 23:55 11/16/19 15:08 Normal Saline 0.9% IV 1,000 mls .[id number] SANDY Administration Cefazolin Sodium/Dextrose 2 gm 50 mls @ 100 mls/hr 11/16/19 14:00 11/16/19 14 :50 / Device IVPB 11/23/19 14:01 50 mls Q8HR SANDY Administration Insulin Human Lispro 0 units 11/15/19 19:38 11/16/19 16:19 Humalog SC 6 unit .MILD SLIDING SCALE PRN Administration Mild Correctional Scale Insulin Human Lispro 0 units 11/15/19 19:38 11/15/19 21:08 Humalog SC 5 unit .BEDTIME SLIDING SC PRN Administration Bedtime Correctional Scale Metoprolol Tartrate 12.5 mg 11/15/19 21:00 11/16/19 09:00 Lopressor PO Not Given BID SANDY - Exam General Appearance: NAD Neck: supple, no JVD Heart: RRR, no gallops Respiratory: no wheezes, no rales, no ronchi Gastrointestinal: non-tender, non-distended, normal bowel sounds Extremities: no cyanosis Neurological: no new deficit Hosp A/P - Plan DVT proph w/SCDs HTN DM2 Mild int Asthma Chronic anticoag h/o MV repair CKD 4 PLAN: Cont sliding scale DC IVF if tolerating PO Add NPH Cont Metoprolol Cont Hydralazine AM labs
[2019-11-16] MEDS: NPH, Human Insulin Isophane 300 UNIT/3 ML VIAL SC SCH (21:12)
[2019-11-16] MEDS: Famotidine 20 MG TAB PO SCH (21:14)
[2019-11-17] MEDS: CEFAZOLIN 2 GM in Premix Bag 1 BAG IVPB SCH ×2 (04:58→14:01)
[2019-11-17 05:08] LABS: #Basophils 0.2 thou/uL (0.0-0.2); #Eosinphils 0.5 thou/uL (0.0-0.7); #Lymphocytes 2.9 thou/uL (1.20-3.40); #Monocytes 0.9 thou/uL (0.11-0.59); %Basophils 1.7 % (0.0-1.0); %Eosinophils 4.4 % (0.0-10.0); %Lymphocytes 23.1 % (21.0-51.0); %Monocytes 6.9 % (0.0-10.0); %Neutrophils 63.9 % (42.0-75.0); Hemoglobin 7.3 g/dL (12.0-16.0); Mean Corpuscular HGB CONC 32.1 g/dL (32.0-36.0); Mean Corpuscular Hemoglobin 30.8 pg (27.0-31.0); Mean Platelet Volume 8.1 fL (7.4-10.4); Platelet Count 262 thou/uL (130-400); RBC Distribution Width 13.3 % (11.5-14.5); Red Blood Cell (RBC) Count 2.38 mill/uL (4.20-5.40); White Blood Cell (WBC) Count 12.6 thou/uL (4.8-10.8)
[2019-11-17 05:14] LABS: INR-International Normal Ratio 1.4; Prothrombin Time 16.8 SEC (12.0-14.7)
[2019-11-17 05:32] LABS: ALT (SGPT) 9 U/L (8-55); AST (SGOT) 11 U/L (5-34); Albumin 3.1 g/dL (3.4-4.8); Alkaline Phosphatase 109 U/L (40-110); Anion Gap 10 mmol/L (10-20); BUN (Urea Nitrogen) 40 mg/dL (9.8-20.1); Bilirubin, Total 0.2 mg/dL (0.2-1.2); Calc. Creatinine Clearance 25 mL/min (70-130); Carbon Dioxide 24 mmol/L (23-31); Chloride 106 mmol/L (98-107); Estimated GFR-MDRD 23; Globulin 3.1 g/dL (2.4-3.5); Glucose 240 mg/dL (80-115); Magnesium 2.1 mg/dL (1.6-2.6); Phosphorus 3.1 mg/dL (2.3-4.7); Potassium 4.7 mmol/L (3.5-5.1); Protein, Total 6.2 g/dL (6.0-8.3); Sodium 135 mmol/L (136-145)
[2019-11-17] MEDS: HumaLOG 300 UNITS/3 ML VIAL SC PRN ×2 (06:05→17:14)
[2019-11-17] MEDS ORDERED: traMADol HCl 50 MG TAB PO PRN ×2 (08:31→08:32)
[2019-11-17] MEDS: Metoprolol Tartrate 25 MG TAB PO SCH (08:53)
[2019-11-17] MEDS: NPH, Human Insulin Isophane 300 UNIT/3 ML VIAL SC SCH (08:54)
[2019-11-17] MEDS: hydrALAZINE 10 MG TAB PO SCH ×2 (08:58→14:01)
[2019-11-17] MEDS ORDERED: Enoxaparin Sodium 40 MG/0.4 ML SYRINGE SC SCH (09:00)
[2019-11-17] MEDS ORDERED: cloNIDine 0.1 MG TAB PO PRN (14:01)
[2019-11-17] MEDS ORDERED: hydrALAZINE 20 MG/ML VIAL SLOW IVP PRN (14:01)
[2019-11-17] MEDS ORDERED: Albuterol Sulfate 2.5 mg/3 ml Neb NEB PRN (14:02)
--- NOTE | 2019-11-17 14:06 | PDOC.HOSPP ---
- Subjective Encounter Date: 11/17/19 Encounter Time: 12:00 Subjective: Patient seen and examined for med mngt. No CP. Pain controlled. No new complaints. No overnight events - Objective Vital Signs & Weight: Vital Signs (12 hours) Temp Pulse Resp BP Pulse Ox 11/17/19 14:01 69 11/17/19 12:16 98.3 F 69 16 173/75 H 100 11/17/19 08:58 70 11/17/19 08:00 97 11/17/19 03:44 97.9 F 70 16 175/71 H 97 Weight Weight 132 lb I&O: 11/16/19 11/17/19 11/18/19 06:59 06:59 06:59 Intake Total 300 2439 Balance 300 2439 Result Diagrams: 11/17/19 04:32 11/17/19 04:32 Additional Labs: Accuchecks 11/17/19 11/17/19 11/16/19 12:16 05:21 20:35 POC Glucose 110 258 H 327 H 11/16/19 15:58 POC Glucose 354 H Hospitalist ROS - Review of Systems Respiratory: denies: cough, dry, shortness of breath, hemoptysis, SOB with excertion, pleuritic pain, sputum, wheezing, other Cardiovascular: denies: chest pain, palpitations, orthopnea, paroxysmal noc. dyspnea, edema, light headedness, other Gastrointestinal: denies: nausea, vomiting, abdominal pain, diarrhea, constipation, melena, hematochezia, other - Medication Medications: Active Medications Generic Name Dose Route Start Last Admin Trade Name Freq PRN Reason Stop Dose Admin Famotidine 20 mg 11/15/19 21:00 11/16/19 21:14 Pepcid PO 20 mg QPM SANDY Administration Cefazolin Sodium/Dextrose 2 gm 50 mls @ 100 mls/hr 11/16/19 14:00 11/17/19 14 :01 / Device IVPB 11/23/19 14:01 50 mls Q8HR SANDY Administration Insulin Human Lispro 0 units 11/15/19 19:38 11/17/19 06:05 Humalog SC 4 unit .MILD SLIDING SCALE PRN Administration Mild Correctional Scale Insulin Human Lispro 0 units 11/15/19 19:38 11/16/19 21:12 Humalog SC 5 unit .BEDTIME SLIDING SC PRN Administration Bedtime Correctional Scale Insulin Human NPH 10 unit 11/16/19 21:00 11/17/19 08:54 Humulin N SC 10 unit BID SANDY Administration Metoprolol Tartrate 12.5 mg 11/15/19 21:00 11/17/19 08:53 Lopressor PO 12.5 mg BID SANDY Administration Morphine Sulfate 2 mg 11/15/19 14:41 11/17/19 09:30 Morphine SLOW IVP 2 mg Q2H PRN Administration Moderate Pain (4-6) - Exam General Appearance: NAD Neck: no JVD Heart: RRR, no gallops Respiratory: no wheezes, no ronchi Gastrointestinal: non-tender, non-distended, normal bowel sounds Extremities: no cyanosis Neurological: no new deficit Hosp A/P - Plan DVT proph w/SCDs HTN DM2 Mild int Asthma Par Afib Chronic anticoag h/o MV bioprosthetic valve CKD 4 Chronic diastolic HF PLAN: Cont sliding scale Cont NPH Cont Metoprolol Increase Hydralazine to 50 TID Cont to monitor Resume Warfarin if ok with Ortho
[2019-11-17] MEDS ORDERED: Albuterol Sulfate 2.5 mg/3 ml Neb NEB SCH (14:30)
[2019-11-17] MEDS ORDERED: hydrALAZINE 25 MG TAB PO SCH (15:00)
[2019-11-17 15:30] VITALS: BP 160/62; TEMP 97.4
[2019-11-18] MEDS ORDERED: Enoxaparin Sodium 30 MG/0.3 ML SYRINGE SC SCH (09:00)
--- NOTE | 2019-11-19 13:11 | EKG ---
Test Reason : Blood Pressure : / mmHG Vent. Rate : 065 BPM Atrial Rate : 065 BPM P-R Int : 194 ms QRS Dur : 086 ms QT Int : 406 ms P-R-T Axes : 076 028 115 degrees QTc Int : 422 ms Normal sinus rhythm Possible Left atrial enlargement Anterior infarct , age undetermined T wave abnormality, consider lateral ischemia Abnormal ECG Confirmed by ARABELLA MANCILLA DO ([id number]), editorial manager ROLANDO LONGO ([id number]) on 11/19/2019 1:10:45 PM Referred By: Confirmed By:ARABELLA MANCILLA DO
== END 2019-11-17 18:00 | DRG 908 ==
LOC: ERS 12:57 → OBSVTOIN 14:47 → SURG A 14:47
PROVIDERS: ADMIT Orthopaedic Surgery; ATTEND Orthopaedic Surgery
PROC: 0QPH04Z Removal of Internal Fixation Device from Left Tibia, Open Approach (ICD-10-PCS; principal; 2019-11-16)
DX: T81.30XA Disruption of wound, unspecified, initial encounter (principal); T84.428A Displacement of other internal orthopedic devices, implants and grafts, initial encounter; N18.4 Chronic kidney disease, stage 4 (severe); I13.0 Hypertensive heart and chronic kidney disease with heart failure and stage 1 through stage 4 chronic kidney disease, or unspecified chronic kidney disease; I50.32 Chronic diastolic (congestive) heart failure; Y83.8 Other surgical procedures as the cause of abnormal reaction of the patient, or of later complication, without mention of misadventure at the time of the procedure; E11.22 Type 2 diabetes mellitus with diabetic chronic kidney disease; J45.20 Mild intermittent asthma, uncomplicated; I48.0 Paroxysmal atrial fibrillation; Z79.01 Long term (current) use of anticoagulants; Z95.2 Presence of prosthetic heart valve; Z79.899 Other long term (current) drug therapy; Z79.4 Long term (current) use of insulin; Z91.19 Patient's noncompliance with other medical treatment and regimen; F17.210 Nicotine dependence, cigarettes, uncomplicated
CPT/HCPCS: 36415; 36416; 36430; 71045; 76000; 80048; 80053; 83735; 84100; 85025; 85610; 85652; 85730; 86140; 86850; 86900; 86901; 87070; 87205; 93005; 94640; J0690; J1100; J1650; J1815; J2001; J2250; J2270; J2405; J2704; J3010; J7611; P9048